=== PATIENT | male | born 1965 | race Caucasian/White ===

== ENCOUNTER → 2018-11-04 | Outpatient (CLI) | payer SELFPAY ==
--- NOTE | 2018-11-04 15:30 | KCIC ---
CT for coronary artery calcium scoring, without IV contrast, 11/04/2018 3:22 PM INDICATION: Cardiovascular screening exam. Mixed hyperlipidemia. Hypertension. Technique: Noncontrast CT images through the coronary arteries was performed . Findings: No significant noncardiac findings are identified. Visual inspection of the coronary arteries: Calcification is seen within the left main, circumflex, and anterior descending arteries. The remaining coronary arteries are without discernible calcified plaque. The computer-generated calcium scoring values are as follows: Left Main Artery: 0.5. Left Anterior Descending Artery: 26.1. Left Circumflex Artery: 84.4. Right Coronary Artery: 0 The total calcium score is 111.1. Impression: Your total calcium score is 111.1. Table: 0: No plaque is present. The chance of significant heart disease is less than 5%, and corresponds to a very low risk for a myocardial infarction. 1-10: A small amount of plaque is present. The chance of significant heart disease is less than 10%, and corresponds to a low risk for a myocardial infarction. 11-100: Plaque is present. This correlates with mild heart disease and a moderate risk for a myocardial infarction. 101-400: A moderate amount of plaque is present. This correlates with heart disease, and a moderate to high risk for a myocardial infarction. Over 400: A large amount of plaque is present. This correlates with a greater than 90% chance of a high grade stenosis. The risk for myocardial infarction is high. Electronically signed by: Lucas Russell MD (11/04/2018 3:26 PM) [id number]
== END | disposition home or self-care (01) ==
LOC: KCIC CT 12:56
DX: Z13.6 Encounter for screening for cardiovascular disorders (principal); I10 Essential (primary) hypertension; E78.2 Mixed hyperlipidemia; I25.10 Atherosclerotic heart disease of native coronary artery without angina pectoris; E11.9 Type 2 diabetes mellitus without complications; Z82.49 Family history of ischemic heart disease and other diseases of the circulatory system
CPT/HCPCS: 75571

== ENCOUNTER → 2018-12-28 | Outpatient (CLI) | payer OTHER ==
--- NOTE | 2018-12-28 14:44 | KCIC ---
Indication: Chronic right hip pain TECHNIQUE: AP pelvis and 2 views of the right hip joint COMPARISON: None FINDINGS/ impression: Bilateral hip joints are symmetric with mild symmetrical joint space narrowing suggesting mild osteoarthritis. Mild bilateral SI joint osteoarthritis. No acute fracture or dislocation. Electronically signed by: Bacilio Contreras DO (12/28/2018 2:42 PM) [facility]
== END | disposition home or self-care (01) ==
LOC: KCIC 08:43
PROVIDERS: ATTEND Nurse Practitioner Family
DX: M47.898 Other spondylosis, sacral and sacrococcygeal region (principal)
CPT/HCPCS: 73502